=== PATIENT | female | born 1965 | race Caucasian/White ===

== ENCOUNTER → 2016-08-31 10:45 | Outpatient (CLI) | payer BC ==
[2014-10-27 02:25] VITALS: BMI 41.6
[~2016-08-31 10:45] MED LIST: HYDROCODON-ACE1 EAC7 PO
== END | disposition home or self-care (01) ==
LOC: D.CT 10:45
DX: R10.2 Pelvic and perineal pain (principal)

== ENCOUNTER → 2018-03-13 05:50 | Day surgery (SDC) | payer BC ==
[2018-03-07 15:46] LABS: BASOPHILS 0.5 % (0-2); EOSINOPHILS 2.5 % (0-7); HEMATOCRIT 37.3 % (36.0-48.0); HEMOGLOBIN 11.8 g/dL (12-16); IMMATURE GRANULOCYTES 0.1 % (0-5); LYMPHOCYTES 29.7 % (15-50); MCH 27.1 pg (26.0-34.0); MCHC 31.6 g/dL (31.0-37.0); MCV 85.7 fL (80.0-100.0); MEAN PLATELET VOLUME 9.8 fL (7.4-10.4); MONOCYTES 5.9 % (2-11); NEUTROPHILS 61.3 % (40-80); RBC 4.35 10x6/uL (4.00-5.40); RDW 13.4 % (11.5-14.5); WBC 8.5 10x3/uL (4.8-10.8)
[2018-03-07 15:59] LABS: PLATELET COUNT 227 10x3/uL (130-400)
[2018-03-07 16:00] LABS: ANION GAP 11.7 mmol/L (8-16); CALCIUM 9.2 mg/dL (8.5-10.1); CARBON DIOXIDE 29.1 mmol/L (21.0-32.0); POTASSIUM - SERUM 3.8 mmol/L (3.5-5.1)
[2018-03-07 16:05] LABS: APTT 30.7 SECONDS (22.8-39.4); INR 1.02 (0.85-1.17); PROTIME 12.9 SECONDS (11.6-15.0)
[~2018-03-13] VITALS: Ht 165.1 cm; Wt 117.0 kg
[~2018-03-13 05:50] MED LIST changes: +EZFE 200200 MG PO; +SYNTHROID150 MCG PO
[2018-03-13 08:10] VITALS: BP 118/66; Ht 165.1 cm; Wt 117.0 kg
[2018-03-13 08:38] LABS: HCG URINE NEGATIVE (NEGATIVE)
== END | disposition home or self-care (01) ==
LOC: D.OPS 05:50 → D.PAN 08:00 → D.OPS 08:30
PROVIDERS: Anesthesiology; Obstetrics & Gynecology
DX: N95.0 Postmenopausal bleeding (principal); R10.2 Pelvic and perineal pain; Z01.812 Encounter for preprocedural laboratory examination